=== PATIENT | male | born 1970 | race Two or more races ===

== ENCOUNTER 2020-10-05 09:04 | Emergency (ER) | payer OTHER ==
[~2020-10-05] VITALS: Ht 175.3 cm; Wt 77.1 kg
[2020-10-05] MEDS ORDERED: ZITHROMAX500 MG PO (12:19)
== END 2020-10-05 12:34 | disposition home or self-care (01) ==
LOC: ER 09:04
DX: S80.211A Abrasion, right knee, initial encounter (principal); S60.511A Abrasion of right hand, initial encounter; S20.319A Abrasion of unspecified front wall of thorax, initial encounter; W18.39XA Other fall on same level, initial encounter; Y93.02 Activity, running; Y92.9 Unspecified place or not applicable